=== PATIENT | female | born 1965 | race Caucasian/White ===

== ENCOUNTER 2021-11-18 06:06 | Day surgery (SDC) | payer OTHER ==
--- NOTE | 2021-11-17 09:25 | RAD REPORT ---
EXAM DESCRIPTION: RAD - Chest Pa And Lat (2 Views) - 11/17/2021 9:20 am CLINICAL HISTORY: Pre op pending wrist surgery COMPARISON: No comparisons FINDINGS: Lines: None. Lungs: No evidence of edema or pneumonia. Pleural: No significant pleural effusions or pneumothorax. Cardiac: The heart size is within normal limits. Bones: No acute fractures. Other: IMPRESSION: No acute cardiopulmonary disease.
[2021-11-17 09:52] LABS: Absolute Lymphocytes (CBC) 1.7 K/uL (0.7-4.9); Hematocrit 32.4 % (36.0-45.0); Lymphocytes % 23.9 % (15.3-44.8)
--- NOTE | 2021-11-17 13:12 | EKG ---
Test Date: 2021-11-17 Test Time: 07:55:27 Opal Polisher: SABRINA MEASUREMENT RESULTS: Intervals: Rate: 96 SD: 112 QRSD: 78 QT: 366 QTc: 462 [place]: P: 72 SD: 112 QRS: 75 T: 76 INTERPRETIVE STATEMENTS: Normal sinus rhythm Normal ECG No previous ECG available for comparison Electronically Signed On 11-17-21 13:11:45 CDT by Adam Mccoy
[2021-11-17 13:29] LABS: Potassium 2.8 mmol/L (3.5-5.1)
[2021-11-18] MEDS: Ringers Lactate 1,000 ML IV ONE (06:20)
[2021-11-18] MEDS ORDERED: FENTANYL CITR 100 MCG/2 ML ONE ×2 (06:38→07:50)
[2021-11-18] MEDS ORDERED: ROPLVACAINE HCL 40 ML ONE (06:38)
[2021-11-18] MEDS ORDERED: LIDOCAINE 1% MPF 5 ML VIAL ONE (06:38)
[2021-11-18] MEDS ORDERED: MIDAZOLAM HCL 2 MG/2 ML INJ ONE (06:38)
[2021-11-18] MEDS ORDERED: dexAMETHasone 10 MG/ML VIAL ONE (06:38)
[2021-11-18] MEDS ORDERED: propofoL 200 MG/20 ML VIAL IV ONE (07:10)
[2021-11-18] MEDS ORDERED: LIDOCAINE 2% MPF 5 ML VIAL ONE (07:11)
[2021-11-18] MEDS ORDERED: CEFAZOLIN SODIUM 1 GM/VIAL ONE (07:30)
[2021-11-18] MEDS ORDERED: dexAMETHasone 4 MG/ML VIAL ONE (08:06)
[2021-11-18] MEDS ORDERED: ONDANSETRON 4 MG/2 ML VIAL ONE (08:06)
[2021-11-18] MEDS ORDERED: ALBUTEROL 2.5 MG/3 ML NEB SOL ONE (09:33)
[2021-11-18 11:14] VITALS: BP 150/72; TEMP 97.1; O2SAT 92
--- NOTE | 2021-11-18 21:52 | OP ---
Date of Procedure: 11/18/2021 Surgeon: Vipin Rivera MD Preoperative Diagnosis: Comminuted displaced right distal radius fracture. Postoperative Diagnosis: Comminuted displaced right distal radius fracture. Procedure: Open reduction, internal fixation of right distal radius fracture. Estimated Blood Loss: 10 cc. Complications: There were no complications. Specimens: No pathology specimens sent. Indications For Operation: The patient is a 56-year-old female who has multiple medical problems who unfortunately fell injuring her right upper extremity. She was seen and examined in my office, wher mckenzie she had pain related to her right wrist. X-rays reviewed, which revealed a comminuted and highly d isplaced distal radius fracture. She is not neurovascularly intact, but says that she is unchanged f rom falling and that she does have neuropathy, which involves both her feet, as well as her hands and she says that this is completely unchanged from preinjury status. Risks, benefits, and alternatives of different methods of treating this has been discussed. It should be noted that she was rather la te to presentation hence felt that we needed to proceed with this urgently. She was sent to preop an d found to have a potassium of 2.8. This was addressed by oral potassium, which was taken yesterday, and upon arriving, she gives this history to Anesthesia, who feels that it is appropriate to continu e, and she was seen in preop, where she is marked. Her neurovascular status is unchanged. Procedure: The patient was taken to the operating room and placed in supine position. General anest hesia was obtained by staff. Following this, a well-padded tourniquet was placed on superior right a rm. Right upper extremity was then prepped and draped in the usual sterile fashion for procedure. F ollowing this, a C-arm was brought in to ensure we get good AP and lateral views, which demonstrate a highly displaced comminuted nature of the fracture. After this, the arm was then elevated, but not exsanguinated. Tourniquet was raised. A standard volar taken down carefully through ski n and soft tissue with a zigzag over the wrist flexion creases. The flexor carpi radialis was encoun tered and removed from the sheath. The undersurface of the sheath was then exploited and t he muscle belly and tendon of the flexor pollicis longus was encountered and then retracted ulnarward to protect the median nerve. This leads down to the pronator quadratus, which was then divided in i ts mid substance and freed off the distal radius using a wood handle elevator. This reveals a fractu re. There is some callus formation, which has been formed already; however, the fracture itself is s omewhat mobile when moving the wrist. This callus was removed to allow for a good reduction and plac ement of the plate. This could be reduced, but is incredibly unstable and decision was made to apply the plate distally first. It was applied distally using a nonlocking screw bringing the plate down to the fracture fragment. After this, it was checked under biplanar C-arm appears that the distal portion of the plate is fairly well fixed. It is slightly little more radial, however, appea rs to be in position and to have very good purchase without significant overhang. There is no ulnar fossa fragment. It was felt we will retain this as it is difficult to apply. After this, my standar d closed reduction maneuver as well as use of a [place] elevator are used to bring it out to length and a proximal screw is then placed and bringing the plate down, re-establishing the volar tilt as well as length. The remaining 2 proximal screws were then placed. The screw we used to take the plate do wn is then replaced with a smaller screw. The 2 radial styloid pins were then placed, both of which have good unicortical fixation. After this, the x-rays examined and the wound was irrigated and the skin was closed using horizontal mattress and interrupted nylon sutures. The patient was then placed in a well-padded sterile dressing as well as a volar hand splint, awakened, and taken to recovery ro in good condition. No complications. SE/MODL Voice ID: [id number] Report ID: [id number]
--- NOTE | 2021-11-20 12:29 | RAD REPORT ---
EXAM DESCRIPTION: RAD - Fluoroscopy <1 Hour - 11/20/2021 7:52 am CLINICAL HISTORY: ORIF COMPARISON: No comparisons FINDINGS/IMPRESSION: Twenty-two intraoperative fluoroscopic images were submitted showing ORIF of an impacted distal radial fracture. Alignment following fixation is anatomic. Fluoro time: 2.1 minutes Radiation dose: 2.2 mGy
[2021-11-21 15:40] LABS: HBsAG Nonreactive (Nonreactive)
== END 2021-11-18 11:20 | disposition home or self-care (01) ==
LOC: OR 06:06
PROVIDERS: ATTEND Orthopaedic Surgery
PROC: 0PSH04Z Reposition Right Radius with Internal Fixation Device, Open Approach (ICD-10-PCS; principal; 2021-11-18 07:00)
DX: S52.571A Other intraarticular fracture of lower end of right radius, initial encounter for closed fracture (principal); M25.531 Pain in right wrist; J44.9 Chronic obstructive pulmonary disease, unspecified; I10 Essential (primary) hypertension; Z20.822 Contact with and (suspected) exposure to COVID-19
CPT/HCPCS: 93005; 85025; 80048; 36415 ×2; 84132; 86705; 87340; 86803; 71046; 25607; G0433; U0003; J2704; J1100 ×2; J2250; J3010 ×2; J2795; J7120; J2405; J0690; 76000